=== PATIENT | female | born 1945 | race Caucasian/White ===

== ENCOUNTER 2017-11-12 20:35 | Inpatient (IN) | payer OTHER ==
[~2017-11-12] VITALS: Ht 154.9 cm; Wt 77.9 kg
--- NOTE | ~2017-11-12 | 2DMMODE ---
[facility] [address] [place] [address] 2 D/M-MODE ECHOCARDIOGRAM Name: FADI LIN Room #: 208-P ADM IN M.R.#: [id number] Admission: 11/12/17 Attend Phys: Oneal Barboza, Discharge: Date of : 41 Date of Service: 11/14/17 1252 Report #: [id number] THIS REPORT FOR: //name// APPROVED REPORT Study performed: 11/14/2017 09:43:09 EXAM: Comprehensive 2D, Doppler, and color-flow Echocardiogram Patient Location: Bedside Room #: 208 Status: routine BSA: 1.77 HR: 68 bpm BP: 137/89 mmHg Other Information Study Quality: Technically Difficult and Technically Limited Technically limited study due to body habitus, uncooperative patient, inability to position patient. Indications Pulmonary Embolism Dyspnea Echo Enhancing Agent Indication: Endocardial border delineation Agent(s) / Amount(s) Used: Optison 3 cc 2D Dimensions LVEF(%): 56.30 (>50%) IVSd: 9.58 (7-11mm) LVOT Diam: 18.91 (18-24mm) LVDd: 29.00 mm PWd: 9.23 (7-11mm) Ascending Ao: 24.77 (22-36mm) LVDs: 20.81 (25-40mm) Aortic Root: 22.03 mm IVC: 12.00 mm Spears's LVEF: 56.30 % Aortic Valve AoV Peak Alex.: 1.83 m/s AO Peak Gr.: 13.45 mmHg LVOT Max P.92 mmHg LVOT Max V: 1.11 m/s BONI Vmax: 1.70 cm2 Mitral Valve [facility] [address] [address] 2 D/M-MODE ECHOCARDIOGRAM Name: FADI LIN Room #: 208-[facility] IN .R.#: [id number] Admission: 11/12/17 Attend Phys: Oneal Barboza, Discharge: Date of : 41 Date of Service: 11/14/17 1252 Report #: [id number] E/A Ratio: 1.2 MV Decel. Time: 171.68 ms MV E Max Alex.: 0.99 m/s MV A Alex.: 0.86 m/s MV PHT: 49.79 ms IVRT: 66.90 ms Pulmonary Valve PV Peak Alex.: 1.01 m/s PV Peak Gr.: 4.06 mmHg Tricuspid Valve RAP Estimate: 10.00 mmHg Left Ventricle Left ventricular cavity is small. There is normal LV segmental wall motion. There is normal left ventricular wall thickness. The left ventricular systolic function is normal. The left ventricular ejection fraction is within the normal range. LVEF is 60-65%. Right Ventricle Right ventricle is not well visualized. The right ventricular systolic function is normal. Atria The left atrium size is normal. The right atrium size is normal. Aortic Valve The aortic valve is not well visualized. No aortic regurgitation is noted. There is no aortic valvular stenosis. Mitral Valve The mitral valve is normal in structure. Trace mitral regurgitation noted by doppler. No evidence of mitral valve stenosis. Tricuspid Valve Tricuspid valve in not visualized. Pulmonic Valve Pulmonic valve is not well visualized. Great Vessels The aortic root is normal in size. IVC is dilated and collapses <50% with inspiration. Pericardium [facility] [address] [place] [address] 2 D/M-MODE ECHOCARDIOGRAM Name: FADI LIN Room #: 208-P [facility] IN M.R.#: [id number] Admission: 11/12/17 Attend Phys: Oneal Barboza, Discharge: Date of : 41 Date of Service: 11/14/17 1252 Report #: [id number] There is no pericardial effusion. <Conclusion> Very limited study The left ventricular systolic function is normal. There is normal LV segmental wall motion. LVEF 60-65%. The aortic valve is not well visualized. No aortic regurgitation or stenosis The mitral valve is normal in structure. Trace mitral regurgitation noted by doppler. There is no pericardial effusion. <ELECTRONICALLY SIGNED> By: Sukhdeep Raymond MD, [facility] 11/14/17 1252 1252 1252 Sukhdeep Raymond MD, [facility] /INF
--- NOTE | ~2017-11-12 | EKG ---
[address] [address] ELECTROCARDIOGRAM REPORT Name: FADI LIN Room #: 208-P ADM IN M.R.#: [id number] Admission: 11/12/17 Attend Phys: Rob Ibrahim DO Discharge: Date of : 41 Report #: [id number] THIS REPORT FOR: //name// [facility] ED Test Date: 2017-11-12 Test Time: 20:52:31 Pat Name: FADI LIN Department: Room: 208 Gender: F Assessment Director: MZOOZander : 1945 Requested By: Анна Mccauley Order Number: [id number] MD: Sukhdeep Raymond Measurements Intervals [place] Rate: 94 P: 44 NH: 164 QRS: 25 QRSD: 84 T: 54 QT: 350 QTc: 438 Interpretive Statements Sinus rhythm No significant abnormality No previous ECG available for comparison Electronically Signed On 11-13-2017 14:28:30 CDT by Sukhdeep Raymond [email or web address] <ELECTRONICALLY SIGNED> By: Sukhdeep Raymond MD, [facility] 11/13/17 1428 51 51 Sukhdeep Raymond MD, FACC /EPI
--- NOTE | ~2017-11-12 | HC ---
[facility] [place] [address] CONSULTATION Name: FADI LIN Room #: 208-P ADM IN M.R.#: [id number] Admission: 11/12/17 Attend Phys: Oneal Barboza MD Discharge: Date of : 41 Report #: [id number] THIS REPORT FOR: //name// CC: FAM unknown Rob Ibrahim PRIMARY CARE PHYSICIAN: Unknown. REFERRAL PHYSICIAN: Dr. Ibrahim. REASON FOR REFERRAL: Pulmonary embolus. HISTORY OF PRESENT ILLNESS: The patient is a 72-year-old white female who presents to the Emergency Room with dyspnea and hypoxia. She was found to have pulmonary embolus. Pulmonary consultation was requested. The patient has mental retardation. She is cared for by a instantizer operator radio time buyer. She was in her usual state of health until about a week ago. She was hospitalized at [facility] for dyspnea, cough. She was felt to have bronchitis. She was given antibiotics, prednisone and nebulized therapy. Once home, the patient was doing fairly well until the day of admission the instantizer operator noticed that her saturation was low, around 88% on room air. She had complained of dyspnea. She was brought to the Emergency Room. With persistent hypoxia, CT chest angiogram was performed. This showed evidence of moderate bilateral pulmonary embolus with a small saddle emboli across the bifurcation of the pulmonary arteries. Review of the vitals including blood pressure, the patient appeared to have been stable without evidence of hypotension. It is believed that the patient is not very active. She is rather sedentary at home. PAST MEDICAL HISTORY: Notable for hypothyroidism, cataracts status post surgery, mental retardation, multiple skin cancers. Past medical history is incomplete. PAST SURGICAL HISTORY: As mentioned above. ALLERGIES: None noted. HOME MEDICATIONS: Include Macrodantin, recent course of prednisone, Desyrel, Levoxyl, multivitamins, memantine, Aricept, Effexor, Peridex, risperidone, oxybutynin, Tessalon Perles, Robitussin, DuoNeb, Ventolin, Colace, Flonase. FAMILY HISTORY: Unknown. [facility] [address] [place] [address] CONSULTATION Name: FADI LIN Room #: 208-P [facility] IN .R.#: [id number] Admission: 11/12/17 Attend Phys: Oneal Barboza MD Discharge: Date of : 41 Report #: [id number] SOCIAL HISTORY: Lifetime nonsmoker, nondrinker. She is cared for by a caregiver. It is unclear if there is any immediate family available. REVIEW OF SYSTEMS: Deferred as the patient is not a good historian. PHYSICAL EXAMINATION: GENERAL: She is alert, awake, in no apparent distress. VITAL SIGNS: Temperature is 98 degrees Fahrenheit, pulse is 70, respiratory rate is 18, blood pressure 150/90 mmHg, saturation 98%. HEENT: Normocephalic, atraumatic. NECK: Supple, without any lymphadenopathy or thyromegaly. CHEST: Breath sounds are good bilaterally without any rales or wheezes. CARDIOVASCULAR: Normal S1, S2. There are no murmurs or gallop. There is no JVD. There is no carotid bruit. Pulses are 2+/4+ bilaterally. ABDOMEN: Soft, nontender, no organomegaly or masses felt. GENITOURINARY: Deferred. RECTAL: Deferred. EXTREMITIES: 1+ edema bilaterally. LABORATORY DATA: CT chest angiogram as mentioned above. Chest x-ray shows small lung volumes, otherwise no obvious infiltrates. Troponin was normal. Electrolytes are normal, creatinine is normal. Liver enzymes are normal. Arterial blood gas on room air revealed pH 7.43, pCO2 of 42, pO2 of 47. Albumin 3.2. IMPRESSION: 1. Acute hypoxic respiratory failure in this 72-year-old white female with mental retardation. CT chest angiogram shows moderate bilateral pulmonary embolus with a thin rim of saddle embolus across the bifurcation of pulmonary arteries. Hemodynamically she is stable with only mild hypoxia. This is felt to be provoked with an apparent history of sedentary lifestyle, but cannot rule out occult neoplasm. 2. Mental retardation. 3. Hypothyroidism. RECOMMENDATIONS: We would recommend heparin drip over the next 24 hours. If no bleeding complication is noted, I will consider oral anticoagulant. We will recommend either Coumadin or Pradaxa as a choice. Perhaps Pradaxa may be better in this patient with mental retardation. We would also recommend obtaining echocardiogram, leg Doppler ultrasound. At this time, I do not think thrombolytic therapy is warranted since the patient is fairly hemodynamically stable with mild hypoxia. [address] [address] CONSULTATION Name: FADI LIN Room #: 208-P ADM IN M.R.#: [id number] Admission: 11/12/17 Attend Phys: Oneal Barboza MD Discharge: Date of : 41 Report #: [id number] Duration of anticoagulation is likely dependent on the patient's health status. If she remains sedentary, I think it is reasonable to continue anticoagulation until such point where risks and benefits will need to be weighed regarding continuing anticoagulation. Thank you for this consultation. <ELECTRONICALLY SIGNED> By: Alberto Cook MD 11/14/17 1345 1359 [id number] Alberto Cook MD /nt
[~2017-11-12 20:35] MED LIST: ALLEGRA60 MG PO; CENTRUM SILVER1 EAC4; COLACE100 MG PO; CROLOM 4% OPTH SO4 % SPRAY; FLONASE 0.05%50 MCG NASAL; MULTIVITAMINS PO; OCEAN45 ML NS; OXYBUTYNIN 5 MG5 M2 PO; OXYBUTYNIN ER 55 MG PO; TIROSINT75 MCG PO; VITAMIN E400 UNIT PO; VOLTAREN 0.1% EY5 M1 GTT
[2017-11-12 20:41] VITALS: BP 136/49
[2017-11-12 21:16] LABS: BE(vivo) 3.3 mmol/L (-2 to +3); HCO3 27.8 mmol/L (22.0-26.0); PCO2 42.2 mmHg (35.0-45.0); pH 7.437 (7.360-7.450); sO2 84.5 % (92.0-98.0)
[2017-11-12 21:17] LABS: PO2 47.3 mmHg (80.0-100.0)
[2017-11-12 21:26] LABS: HEMATOCRIT 38.2 % (37.0-47.0); HEMOGLOBIN 12.7 gm/dL (12.0-15.0); MCH 31.3 pg (26.0-34.0); MCHC 33.2 g/dL (28.0-37.0); MCV 94.1 fL (80.0-100.0); PLATELET COUNT 170 thou/uL (150-400); RBC 4.06 mil/uL (4.20-5.00); RDW 13.5 % (10.5-14.5); WBC 9.5 thou/uL (4.0-11.0)
[2017-11-12 21:43] LABS: ALBUMIN 3.2 g/dL (3.4-5.0); POTASSIUM 3.9 mmol/L (3.5-5.1)
[2017-11-12 21:59] LABS: CALCIUM 10.1 mg/dL (8.5-10.1); CREATININE 0.8 mg/dL (0.6-1.0); TOTAL BILIRUBIN 0.4 mg/dL (<0.1-1.0); TOTAL PROTEIN 6.8 g/dL (6.4-8.2)
[2017-11-12 22:00] LABS: ABSOLUTE NEUTROPHILS 6.7 thou/uL (1.4-8.2); MYELOCYTES 1 %
[2017-11-12 22:52] VITALS: BP 135/70
[2017-11-13] VITALS (7 sets, daily range): BP systolic 90–156; BP diastolic 49–90
[2017-11-13 00:02] LABS: PROTIME 9.9 Seconds (9.3-11.4)
[2017-11-13] MEDS ORDERED: MACRODANTIN100 MG PO (00:40)
[2017-11-13] MEDS ORDERED: PREDNISONE 20 M20 MG PO (00:40)
[2017-11-13] MEDS ORDERED: VENTOLIN HFA 1818 GM INH ×2 (00:41→01:00)
[2017-11-13] MEDS ORDERED: TRAZODONE HCL50 MG PO (00:41)
[2017-11-13] MEDS ORDERED: LEVOXYL50 MCG PO (00:42)
[2017-11-13] MEDS ORDERED: NASA MIST SALIN75 ML NASAL (00:43)
[2017-11-13] MEDS ORDERED: MULTIPLE VITAM1 EAC4 PO (00:44)
[2017-11-13] MEDS ORDERED: MEMANTINE HCL10 MG PO (00:45)
[2017-11-13] MEDS ORDERED: ARICEPT 5 MG TAB5 MG PO (00:45)
[2017-11-13] MEDS ORDERED: EFFEXOR XR75 MG PO (00:46)
[2017-11-13] MEDS ORDERED: EUCERIN CREME120 GM TOP (00:47)
[2017-11-13] MEDS ORDERED: NEO/POLYMIXIN/DE5 M1 OPHTHALMIC (00:48)
[2017-11-13] MEDS ORDERED: RISPERIDONE OD0.5 MG PO (00:49)
[2017-11-13] MEDS ORDERED: PERIDEX15 ML SWISH&SPIT (00:50)
[2017-11-13] MEDS ORDERED: OXYBUTYNIN 5 MG5 M2 PO (00:51)
[2017-11-13] MEDS ORDERED: TESSALON PERLE100 MG PO (00:52)
[2017-11-13] MEDS ORDERED: ROBITUSSIN100 MG/53 PO (00:53)
[2017-11-13] MEDS ORDERED: TYLENOL325 MG PO (00:54)
[2017-11-13] MEDS ORDERED: DUONEB 2.5-0.5 M3 ML INH (00:57)
[2017-11-13] MEDS ORDERED: COLACE100 MG PO (01:01)
[2017-11-13] MEDS ORDERED: MAXITROL EYE DRO5 ML OPHTHALMIC (01:10)
[2017-11-13 06:06] LABS: ABSOLUTE NEUTROPHILS 6.5 thou/uL (1.4-8.2); BASOPHILS 0.9 % (0.0-2.0); EOSINOPHILS 3.7 % (0.0-3.0); HEMATOCRIT 33.3 % (37.0-47.0); HEMOGLOBIN 11.2 gm/dL (12.0-15.0); LYMPHOCYTES 18.7 % (24.0-44.0); MCH 31.7 pg (26.0-34.0); MCHC 33.6 g/dL (28.0-37.0); MCV 94.3 fL (80.0-100.0); MONOCYTES 8.1 % (1.0-8.0); PLATELET COUNT 148 thou/uL (150-400); POLYS 68.6 % (36.0-66.0); RBC 3.54 mil/uL (4.20-5.00); RDW 13.5 % (10.5-14.5); WBC 9.4 thou/uL (4.0-11.0)
[2017-11-14 03:00] LABS: ABSOLUTE NEUTROPHILS 6.5 thou/uL (1.4-8.2); BASOPHILS 0.4 % (0.0-2.0); EOSINOPHILS 1.8 % (0.0-3.0); HEMOGLOBIN 11.3 gm/dL (12.0-15.0); LYMPHOCYTES 19.1 % (24.0-44.0); MCH 31.3 pg (26.0-34.0); MCHC 33.1 g/dL (28.0-37.0); MCV 94.4 fL (80.0-100.0); MONOCYTES 8.2 % (1.0-8.0); PLATELET COUNT 157 thou/uL (150-400); POLYS 70.5 % (36.0-66.0); RDW 13.7 % (10.5-14.5); WBC 9.3 thou/uL (4.0-11.0)
[2017-11-14 03:13] LABS: CALCIUM 9.2 mg/dL (8.5-10.1); CREATININE 0.7 mg/dL (0.6-1.0); POTASSIUM 4.2 mmol/L (3.5-5.1)
[2017-11-14 04:45] VITALS: BP 125/82; BP 151/74
[2017-11-14 07:17] VITALS: BP 137/89
[2017-11-14 11:08] VITALS: BP 129/90
[2017-11-14 15:34] VITALS: BP 111/68
[2017-11-14 20:10] VITALS: BP 129/64
[2017-11-15 04:40] VITALS: BP 124/85
[2017-11-15 05:29] LABS: HEMATOCRIT 34.1 % (37.0-47.0); HEMOGLOBIN 11.5 gm/dL (12.0-15.0); MCHC 33.9 g/dL (28.0-37.0); MCV 94.3 fL (80.0-100.0); RBC 3.61 mil/uL (4.20-5.00); RDW 13.7 % (10.5-14.5); WBC 8.2 thou/uL (4.0-11.0)
[2017-11-15 07:21] VITALS: BP 137/64
[2017-11-15] MEDS ORDERED: MIRALAX17 GM PO (09:27)
[2017-11-15] MEDS ORDERED: PRADAXA150 MG PO (09:32)
[2017-11-15 11:54] VITALS: BP 179/68
[2017-11-15 13:35] VITALS: BP 140/84
[2017-11-15 15:01] VITALS: BP 171/87
== END 2017-11-15 17:15 | disposition home or self-care (01) | DRG 175 ==
LOC: ER 20:35 → 2N 22:36 → EROBS 22:36 → 2N 23:57 → ENTRNSPT 11-15 16:13 → EDTRNSPT 11-15 16:53 → 2N 11-15 17:15
PROVIDERS: Hospitalist; Internal Medicine Pulmonary Disease; Physician Assistant
DX: I26.92 Saddle embolus of pulmonary artery without acute cor pulmonale (principal); J96.01 Acute respiratory failure with hypoxia; I82.412 Acute embolism and thrombosis of left femoral vein; E03.9 Hypothyroidism, unspecified; H91.90 Unspecified hearing loss, unspecified ear; F79 Unspecified intellectual disabilities; E66.9 Obesity, unspecified; Z85.828 Personal history of other malignant neoplasm of skin; Z98.42 Cataract extraction status, left eye; Z98.41 Cataract extraction status, right eye; Z68.32 Body mass index [BMI] 32.0-32.9, adult
CPT/HCPCS: 10081

== ENCOUNTER 2018-03-14 08:35 | Emergency (ER) | payer OTHER ==
[~2018-03-14] VITALS: Ht 142.2 cm; Wt 73.0 kg
--- NOTE | ~2018-03-14 | EKG ---
[address] [address] ELECTROCARDIOGRAM REPORT Name: FADI LIN [id number] Admission: 03/14/18 Attend Phys: Discharge: 03/14/18 Date of : 41 Report #: [id number] THIS REPORT FOR: //name// [facility] ED Test Date: 2018-03-14 Test Time: 08:39:06 Pat Name: FADI LIN Department: Room: Gender: F Pasteurizing Supervisor: mikie : 1945 Requested By: Shala Porras Order Number: [id number] MD: Sukhdeep Raymond Measurements Intervals [place] Rate: 93 P: 42 MS: 173 QRS: 35 QRSD: 90 T: 22 QT: 356 QTc: 443 Interpretive Statements Sinus rhythm Normal tracing Compared to ECG 11/12/2017 20:52:31 No significant changes Electronically Signed On 03-14-2018 16:23:28 CDT by Sukhdeep Raymond [email or web address] <ELECTRONICALLY SIGNED> By: Sukhdeep Raymond MD, [facility] 03/14/18 1623 0839 08 Sukhdeep Raymond MD, FACC /EPI
[~2018-03-14 08:35] MED LIST changes: +ARICEPT 5 MG TAB5 MG PO; +DUONEB 2.5-0.5 M3 ML INH; +EFFEXOR XR75 MG PO; +EUCERIN CREME120 GM TOP; +LEVOXYL50 MCG PO; +MACRODANTIN100 MG PO; +MAXITROL EYE DRO5 ML OPHTHALMIC; +MEMANTINE HCL10 MG PO; +MIRALAX17 GM PO; +MULTIPLE VITAM1 EAC4 PO; +NASA MIST SALIN75 ML NASAL; +NEO/POLYMIXIN/DE5 M1 OPHTHALMIC; +PERIDEX15 ML SWISH&SPIT; +PRADAXA150 MG PO; +PREDNISONE 20 M20 MG PO; +RISPERIDONE OD0.5 MG PO; +ROBITUSSIN100 MG/53 PO; +TESSALON PERLE100 MG PO; +TRAZODONE HCL50 MG PO; +TYLENOL325 MG PO; +VENTOLIN HFA 1818 GM INH
[2018-03-14 09:18] LABS: ABSOLUTE NEUTROPHILS 2.9 thou/uL (1.4-8.2); BASOPHILS 0.9 % (0.0-2.0); EOSINOPHILS 3.8 % (0.0-3.0); HEMATOCRIT 37.2 % (37.0-47.0); HEMOGLOBIN 12.5 gm/dL (12.0-15.0); LYMPHOCYTES 20.8 % (24.0-44.0); MCH 31.8 pg (26.0-34.0); MCHC 33.5 g/dL (28.0-37.0); MONOCYTES 5.8 % (1.0-8.0); PLATELET COUNT 218 thou/uL (150-400); POLYS 68.7 % (36.0-66.0); RBC 3.92 mil/uL (4.20-5.00); RDW 13.3 % (10.5-14.5); WBC 4.2 thou/uL (4.0-11.0)
[2018-03-14 09:25] LABS: ANION GAP 6 mmol/L (7-16); BUN 20 mg/dL (7-18); CALCIUM 9.7 mg/dL (8.5-10.1); CHLORIDE 104 mmol/L (98-107); CO2 29 mmol/L (21-32); GLUCOSE 148 mg/dL (74-106); POTASSIUM 4.1 mmol/L (3.5-5.1); SODIUM 139 mmol/L (136-145)
[2018-03-14 09:34] LABS: TROPONIN-I <0.06 ng/mL (<0.06)
[2018-03-14] MEDS ORDERED: PROVENTIL HFA6.7 G1 INH (10:22)
== END 2018-03-14 10:38 | disposition home or self-care (01) ==
LOC: ER 08:35
PROVIDERS: Emergency Medicine
DX: J06.9 Acute upper respiratory infection, unspecified (principal); E03.9 Hypothyroidism, unspecified

== ENCOUNTER 2018-03-21 15:18 | Emergency (ER) | payer OTHER ==
[~2018-03-21] VITALS: Ht 149.9 cm; Wt 83.9 kg
--- NOTE | ~2018-03-21 | EKG ---
[address] [place] [address] ELECTROCARDIOGRAM REPORT Name: FADI LIN [id number] Admission: 03/21/18 Attend Phys: Discharge: 03/21/18 Date of : 41 Report #: [id number] THIS REPORT FOR: //name// [facility] ED Test Date: 2018-03-21 Test Time: 15:56:08 Pat Name: FADI LIN Department: Room: Gender: F Buffing Machine Tender: [facility] : 1945 Requested By: Shala Porras Order Number: [id number] MD: Sukhdeep Raymond Measurements Intervals [place] Rate: 78 P: 37 [place]: 167 QRS: 24 QRSD: 91 T: 28 QT: 355 QTc: 405 Interpretive Statements Sinus rhythm Compared to ECG 03/14/2018 08:39:06 No significant changes Electronically Signed On 03-21-2018 17:12:58 CDT by Sukhdeep Raymond [email or web address] <ELECTRONICALLY SIGNED> By: Sukhdeep Raymond MD, [facility] 03/21/18 1712 1556 1556 Sukhdeep Raymond MD, FACC /EPI
[~2018-03-21 15:18] MED LIST changes: +PROVENTIL HFA6.7 G1 INH
[2018-03-21 15:47] LABS: BE(vivo) 0.6 mmol/L (-2 to +3); HCO3 25.6 mmol/L (22.0-26.0); PCO2 42.5 mmHg (35.0-45.0); PO2 62.2 mmHg (80.0-100.0); pH 7.397 (7.360-7.450); sO2 91.8 % (92.0-98.0)
[2018-03-21 15:56] LABS: ABSOLUTE NEUTROPHILS 5.9 thou/uL (1.4-8.2); BASOPHILS 0.6 % (0.0-2.0); EOSINOPHILS 1.4 % (0.0-3.0); HEMATOCRIT 37.2 % (37.0-47.0); HEMOGLOBIN 12.6 gm/dL (12.0-15.0); LYMPHOCYTES 15.4 % (24.0-44.0); MCH 32.1 pg (26.0-34.0); MCHC 33.9 g/dL (28.0-37.0); MCV 94.7 fL (80.0-100.0); MONOCYTES 7.6 % (1.0-8.0); PLATELET COUNT 265 thou/uL (150-400); RBC 3.93 mil/uL (4.20-5.00); RDW 13.7 % (10.5-14.5); WBC 7.8 thou/uL (4.0-11.0)
[2018-03-21 16:08] LABS: CALCIUM 10.1 mg/dL (8.5-10.1); CREATININE 0.8 mg/dL (0.6-1.0); POTASSIUM 4.3 mmol/L (3.5-5.1)
== END 2018-03-21 16:26 | disposition home or self-care (01) ==
LOC: ER 15:18
PROVIDERS: Emergency Medicine
DX: J06.9 Acute upper respiratory infection, unspecified (principal); E03.9 Hypothyroidism, unspecified; F03.90 Unspecified dementia, unspecified severity, without behavioral disturbance, psychotic disturbance, mood disturbance, and anxiety; Z85.828 Personal history of other malignant neoplasm of skin; Z86.718 Personal history of other venous thrombosis and embolism

== ENCOUNTER 2018-07-24 09:17 | Emergency (ER) | payer OTHER ==
[~2018-07-24] VITALS: Ht 149.9 cm; Wt 71.2 kg
--- NOTE | ~2018-07-24 | EKG ---
[address] [address] [facility] [place] [address] ELECTROCARDIOGRAM REPORT Name: FADI LIN [facility] [id number] Admission: 07/24/18 Attend Phys: Discharge: Date of : 41 Report #: [id number] THIS REPORT FOR: //name// [facility] ED Test Date: 2018-07-24 Test Time: 10:44:39 Pat Name: FADI LIN Department: Room: Gender: F Enterprise Applications Manager: MADELIN : 1945 Requested By: Ron Griffith Order Number: [id number] MD: Modesto Karimi Measurements Intervals [place] Rate: 93 P: 46 SC: 163 QRS: 19 QRSD: 85 T: 28 QT: 335 QTc: 417 Interpretive Statements Sinus rhythm Borderline low voltage, extremity leads Compared to ECG 03/21/2018 15:56:08 No significant changes Electronically Signed On 07-24-2018 13:05:42 [employer] by Modesto Karimi [email or web address] <ELECTRONICALLY SIGNED> By: Modesto Karimi MD 07/24/18 1305 1044 1044 Modesto Karimi MD /PATIENCE
[2018-07-24 10:13] LABS: ABSOLUTE NEUTROPHILS 4.1 thou/uL (1.4-8.2); BASOPHILS 0.3 % (0.0-2.0); EOSINOPHILS 15.2 % (0.0-3.0); HEMATOCRIT 35.7 % (37.0-47.0); LYMPHOCYTES 11.8 % (24.0-44.0); MCH 31.8 pg (26.0-34.0); MCHC 33.6 g/dL (28.0-37.0); MCV 94.6 fL (80.0-100.0); MONOCYTES 8.5 % (1.0-8.0); PLATELET COUNT 219 thou/uL (150-400); POLYS 64.2 % (36.0-66.0); RBC 3.77 mil/uL (4.20-5.00); RDW 13.9 % (10.5-14.5); WBC 6.4 thou/uL (4.0-11.0)
[2018-07-24] MEDS ORDERED: OXYBUTYNIN 5 MG5 M2 PO (10:30)
[2018-07-24 10:32] LABS: D-DIMER 0.47 ug/mLFEU (0.19-0.50); INR 1.1; PROTIME 11.4 Seconds (9.3-11.4)
[2018-07-24 10:35] LABS: ANION GAP 9 mmol/L (7-16); BUN 15 mg/dL (7-18); CALCIUM 9.7 mg/dL (8.5-10.1); CHLORIDE 107 mmol/L (98-107); CO2 25 mmol/L (21-32); CREATININE 0.9 mg/dL (0.6-1.0); GLUCOSE 128 mg/dL (74-106); SODIUM 141 mmol/L (136-145)
[2018-07-24 10:39] LABS: ALBUMIN 2.9 g/dL (3.4-5.0); MAGNESIUM 1.9 mg/dL (1.8-2.4); SGOT 12 U/L (15-37); SGPT 19 U/L (30-65); TOTAL BILIRUBIN 0.2 mg/dL (<0.1-1.0); TOTAL PROTEIN 6.2 g/dL (6.4-8.2); TROPONIN-I <0.06 ng/mL (<0.06)
[2018-07-24 12:34] LABS: URINE BILIRUBIN NEGATIVE (Negative); URINE BLOOD 1+ (Negative); URINE CLARITY CLEAR; URINE COLOR YELLOW; URINE GLUCOSE-RANDOM* NEGATIVE (Negative); URINE KETONES TRACE (Negative); URINE NITRITE-REFLEX NEGATIVE (Negative); URINE PROTEIN (DIPSTICK) TRACE (Negative); URINE SPECIFIC GRAVITY >= 1.030 (1.005-1.035); URINE UROBILINOGEN 0.2 E.U./dl (0.2-1.0)
[2018-07-24 12:37] LABS: URINE LEUKOCYTES-REFLEX TRACE (Negative)
[2018-07-24 12:55] LABS: SQUAMOUS 0-3 Few /LPF (0-3)
[2018-07-24 12:56] LABS: BACTERIA-REFLEX 1-9 Few /HPF (None Seen); CALCIUM OXALATE 4-10 Moderate /LPF (None Seen); CASTS None Seen /LPF (None Seen); URINE RBC 3-10 Few /HPF (0-2); URINE WBC-REFLEX 0-5 Rare /HPF (0-5)
[2018-07-24] MEDS ORDERED: AUGMENTIN 500-1 EACH PO (13:12)
[2018-07-24] MEDS ORDERED: PREDNISONE 20 M20 MG PO (13:12)
[2018-07-24] MEDS ORDERED: ZOFRAN8 MG PO (13:14)
[2018-07-24 13:49] VITALS: BP 132/89
== END 2018-07-24 16:33 | disposition home or self-care (01) ==
LOC: ER 09:17
PROVIDERS: Emergency Medicine
DX: J44.9 Chronic obstructive pulmonary disease, unspecified (principal); R11.2 Nausea with vomiting, unspecified; Z99.81 Dependence on supplemental oxygen; E03.9 Hypothyroidism, unspecified

== ENCOUNTER 2018-09-19 17:21 | Emergency (ER) | payer OTHER ==
[~2018-09-19] VITALS: Ht 157.5 cm; Wt 81.7 kg
[~2018-09-19 17:21] MED LIST changes: +AUGMENTIN 500-1 EACH PO; +ZOFRAN8 MG PO
[2018-09-19 17:46] LABS: ABSOLUTE NEUTROPHILS 5.5 thou/uL (1.4-8.2); BASOPHILS 0.6 % (0.0-2.0); EOSINOPHILS 1.9 % (0.0-3.0); HEMATOCRIT 36.2 % (37.0-47.0); HEMOGLOBIN 12.2 gm/dL (12.0-15.0); LYMPHOCYTES 15.4 % (24.0-44.0); MCH 32.2 pg (26.0-34.0); MCHC 33.6 g/dL (28.0-37.0); MCV 95.8 fL (80.0-100.0); MONOCYTES 5.9 % (1.0-8.0); PLATELET COUNT 288 thou/uL (150-400); POLYS 76.2 % (36.0-66.0); RBC 3.78 mil/uL (4.20-5.00); RDW 14.8 % (10.5-14.5); WBC 7.2 thou/uL (4.0-11.0)
[2018-09-19 17:49] LABS: CALCIUM 9.6 mg/dL (8.5-10.1); CREATININE 0.8 mg/dL (0.6-1.0); POTASSIUM 4.5 mmol/L (3.5-5.1)
[2018-09-19 17:55] LABS: ALBUMIN 3.2 g/dL (3.4-5.0); TOTAL BILIRUBIN 0.3 mg/dL (<0.1-1.0); TOTAL PROTEIN 6.8 g/dL (6.4-8.2)
[2018-09-19] MEDS ORDERED: MUCINEX600 MG PO (18:31)
[2018-09-19] MEDS ORDERED: PREDNISONE 20 M20 MG PO (18:31)
[2018-09-19] MEDS ORDERED: TESSALON PERLE100 MG PO (18:31)
[2018-09-19 18:50] VITALS: BP 100/48
== END 2018-09-19 18:50 | disposition home or self-care (01) ==
LOC: ER 17:21
PROVIDERS: Nurse Practitioner Family
DX: J40 Bronchitis, not specified as acute or chronic (principal); E03.9 Hypothyroidism, unspecified; Z85.828 Personal history of other malignant neoplasm of skin

== ENCOUNTER 2019-02-27 23:45 | Inpatient (IN) | payer OTHER ==
[~2019-02-27] VITALS: Ht 154.9 cm; Wt 73.1 kg
[~2019-02-27 23:45] MED LIST changes: +MUCINEX600 MG PO
[2019-02-27 23:49] VITALS: BP 120/50
[2019-02-28 00:55] LABS: URINE BILIRUBIN 2+ (Negative); URINE BLOOD 3+ (Negative); URINE CLARITY TURBID; URINE COLOR BROWN; URINE GLUCOSE-RANDOM* NEGATIVE (Negative); URINE KETONES 1+ (Negative); URINE PROTEIN (DIPSTICK) 2+ (Negative); URINE SPECIFIC GRAVITY 1.025 (1.005-1.035)
[2019-02-28 00:56] LABS: URINE LEUKOCYTES-REFLEX 1+ (Negative); URINE NITRITE-REFLEX POSITIVE (Negative)
[2019-02-28 01:07] LABS: BACTERIA-REFLEX 1-9 Few /HPF (None Seen); CALCIUM OXALATE 4-10 Moderate /LPF (None Seen); CASTS None Seen /LPF (None Seen); MUCUS 0-3 Light strn/LPF (None Seen); SQUAMOUS 0-3 Few /LPF (0-3); URINE RBC >20 Many /HPF (0-2); WBC CLUMPS Few (None Seen)
[2019-02-28 01:50] LABS: ABSOLUTE NEUTROPHILS 3.7 thou/uL (1.4-8.2); BASOPHILS 0.5 % (0.0-2.0); EOSINOPHILS 2.1 % (0.0-3.0); HEMATOCRIT 35.9 % (37.0-47.0); HEMOGLOBIN 11.9 gm/dL (12.0-15.0); LYMPHOCYTES 21.5 % (24.0-44.0); MCH 31.4 pg (26.0-34.0); MCHC 33.3 g/dL (28.0-37.0); MCV 94.4 fL (80.0-100.0); MONOCYTES 7.6 % (1.0-8.0); PLATELET COUNT 236 thou/uL (150-400); POLYS 68.3 % (36.0-66.0); RDW 14.4 % (10.5-14.5); WBC 5.4 thou/uL (4.0-11.0)
[2019-02-28 01:58] LABS: CALCIUM 10.4 mg/dL (8.5-10.1); CREATININE 0.9 mg/dL (0.6-1.0); POTASSIUM 4.9 mmol/L (3.5-5.1)
[2019-02-28 03:14] VITALS: BP 135/69
[2019-02-28 03:43] VITALS: BP 135/69
[2019-02-28 03:50] VITALS: BP 105/63
--- NOTE | 2019-02-28 04:20 | NUR ---
PT ARRIVED TO THE UNIT AT AROUND 0340. PT ALERT TO SELF. UNABLE TO ANSWER ADMISSION QUESTIONS. DENIES PAIN. INCONTINENT OF BLADDER. SKIN INTACT. SCATTERED BRUISING PEBBLES MORE TO LEFT UPPER ARM. IVF STARTED TO RFA. PT IS AFEBRILE.97% ON ROOM AIR. FALL PREC INITIATED. SCDS IN PLACE. WILL CONTINUE WITH POC TILL EOS.
--- NOTE | 2019-02-28 07:13 | NUR ---
call put out to employment evaluator/case manager and house mgr but both did not pear picker. was calling to get consent over the phone.
[2019-02-28 08:30] VITALS: BP 133/80
--- NOTE | 2019-02-28 10:41 | NUR ---
Case opened to follow for dc planning. Pt is a warren of the [facility] [employer] office. Her case mngr is Vikki Lima at the PA's office. We have a copy of her quynhgosiaheidiangélica paper work in medical records. She lives in a D owned home with three other ladies with MRDD hx. Their home is called [facility] and they have 24hr caregivers that manage their meals, adl's and medications. Her field care advocate at [facility] is Lani Roberts who is at bedside this morning. Elvia can be reached at the [facility] main office [phone] or her cell [phone]. The caregivers at the house can be reached directly at [phone]. They can provide transportation at in even on the weekends. A copy of her dc instructions will need to be faxed to [phone]. The pt walks with a rwalker and sba. She needs assist with sit to stand transfers and all adl's. She is child like in her demeanor and anxious to "go home". Pt is being treated for a UTI. She is a fall risk. She normally wears a brief and needs frequent offers to go to the bathroom. Message left for the PA's office cm to confirm that her dc plan will be to return to her prior living situation. The pt goes by a nickname of " Polly". Will follow.
--- NOTE | 2019-02-28 11:54 | NUR ---
PT A&OX SELF. AMBULATION NOT OBSERVED AT THIS TIME. NS INFUSING AT 100/HR IN R FA W/O COMPS. CONSENT TO TREAT OBTAINED BY JENNIFER LUNA [facility] PUBLIC SOLAR FABRICATION TECHNICIAN. PT BECAME TEARFULL WHEN SHE LEARNED SHE WOULDNT BE GOING BACK TO [facility] TODAY. BED ALARM IS ON AND CALL LIGHT W/I REACH. WILL CONT POC.
[2019-02-28 17:00] VITALS: BP 121/71
[2019-02-28 20:04] VITALS: BP 132/69
--- NOTE | 2019-03-01 00:29 | NUR ---
ASSESSMENT COMPLETED. PT IS ALERT TO SELF. DENIES PAIN. DOES NOT REALLY C/O ANYTHING. SHE IS INCONTINENT OF BLADDER.REQUIRES REPOSITIONING IN BED. BLE WITH SOME 1+ EDEMA. AFEBRILE. ON IV ABT FOR UTI.NO FURTHER CONCERNS AT THIS TIME.
[2019-03-01 04:39] VITALS: BP 125/80
[2019-03-01 05:27] LABS: CALCIUM 9.6 mg/dL (8.5-10.1); CREATININE 0.8 mg/dL (0.6-1.0); POTASSIUM 4.8 mmol/L (3.5-5.1)
[2019-03-01 07:23] VITALS: BP 137/71
[2019-03-01] MEDS ORDERED: CEFDINIR300 MG PO (12:32)
[2019-03-01 13:34] VITALS: BP 137/71
--- NOTE | 2019-03-01 15:00 | NUR ---
ASSUMED CARE OF PT AT 0700. ASSESSMENT CHARTED. PT ALERT TO SELF AND PLACE. MENTAL RETARDATION AT BASELINE. PT CHEESH-NA, BUT ABLE TO COMMUNICATE. PLEASANT, COOPERATIVE. STATES FEELING BETTER. NEW DISCHARGE ORDERS TO RETURN TO [facility]. CAREGIVER AT BEDSIDE. IV REMOVED, NO BLEEDING NOTED. PT SENT WITH PERSONAL GOWN AND SHOES. DR. HSU TO CALL IN NEW SCRIPT. PT LEFT IN STABLE CONDITION WITH CAREGIVER VIA WHEELCHAIR ESCORT AT 14:23.
--- NOTE | 2019-03-01 15:58 | NUR ---
REHABILITATION TEAM LEAD HERE FROM [facility] AND WILL TRANSPORT PT HOME THIS AFTERNOON. DC CONSENT OBTAINED FROM JAYSON MARTIN ADM AND ALSO LEFT MESSAGE TO ALERT JENNIFER LUNA OF THE DC WELL.
== END 2019-03-01 14:30 | disposition home or self-care (01) | DRG 689 ==
LOC: ER 23:45 → 4E 02-28 02:56 → EROBS 02-28 02:56 → 4E 02-28 03:37 → ENTRNSPT 03-01 14:02 → EDTRNSPTSTS 03-01 14:09 → 4E 03-01 14:30
PROVIDERS: Emergency Medicine; Nurse Practitioner Family; ADMIT Internal Medicine
DX: N30.00 Acute cystitis without hematuria (principal); G93.41 Metabolic encephalopathy; I95.1 Orthostatic hypotension; F39 Unspecified mood [affective] disorder; F03.90 Unspecified dementia, unspecified severity, without behavioral disturbance, psychotic disturbance, mood disturbance, and anxiety; E03.9 Hypothyroidism, unspecified; Z98.42 Cataract extraction status, left eye; Z98.41 Cataract extraction status, right eye; Z79.01 Long term (current) use of anticoagulants; Z79.899 Other long term (current) drug therapy
CPT/HCPCS: 10084